=== PATIENT | male | born 1995 | race Caucasian/White ===

== ENCOUNTER 2020-02-03 09:17 | Emergency (ER) | payer OTHER, MEDICARE, SELFPAY ==
[2020-02-03 09:30] VITALS: BP 141/95; PULSE 100; RESP 22; TEMP 37; O2SAT 96
[2020-02-03 10:00] VITALS: BP 155/87; PULSE 80; RESP 16
--- NOTE | 2020-02-03 10:22 | XR_ITS ---
EXAMINATION: XR CHEST CLINICAL INFORMATION: Coughing COMPARISON: December 24, 2018 TECHNIQUE: AP portable view of the chest was obtained. FINDINGS: No significant abnormality is noted involving the heart, lungs, mediastinum, bony thorax or soft tissues. XR/XR chest 1V IMPRESSION: No acute disease.
--- NOTE | 2020-02-03 10:23 | ED_ITS ---
HPI - URI/Sore Throat General Chief Complaint: Upper Respiratory Symptoms Stated Complaint: FLU SYMPTONS Time Seen by Provider: 02/03/20 11:27 Source: patient Mode of arrival: ambulatory Limitations: no limitations History of Present Illness HPI Narrative: patient presents to ED for coughing, body aches, night sweats, fever, and chills. Patient states no one at work or at home having similar symptoms. patient states having symptoms for the past 2 days. Patient denies any shortness of breath, swelling of lower extremities, chest painm calf pain, or weakness. MD elicited complaint: fever and cough Related Data Allergies Allergy/AdvReac Type Severity Reaction Status Date / Time latex [LATEX] Allergy Mild RASH Unverified 12/29/19 16:42 Review of Systems Review of Systems: Patient denies any abdominal pain, diarrhea, nausea, vom iting, shortness of breath, weakness, dizziness, neck stiffness, photophobia, slurred speech, or chest pain. Patient states no abdominal pain, dysuria, hematuria, flank pain, testicular pain, or rash. Yes all other systems are reviewed and are negative [facility] Past Medical History Medical History (Updated 02/03/20 @ 11:35 by JOSE Penaloza) No known health problems No known health problems Social History Social History Alcohol intake: never Smoking Status: Never smoker Use of substances other than those prescribed or required for medical reasons: No Advance Directives: No Advance Directives Information Provided: No Physical Exam Vital Signs: Vital Signs: Vital Signs Temp Pulse Resp BP Pulse Ox 02/03/20 11:32 97 02/03/20 10:00 80 16 155/87 H 02/03/20 09:30 98.6 F 100 22 H 141/95 H 96 Body Mass Index 20.0 Const: General: cooperative, healthy appearing, comfortable, no acute distress, well developed, alert and awake Orientation/consciousness: oriented to person and patient oriented x3 HENMT: Head: Yes normal to inspection Face and sinus: Yes normal facial exam Mouth: Normal oral and palatal mucosa present Throat: Yes posterior oropharynx normal, Yes tonsils normal and Yes uvula midline Eyes: General: appearance normal, both eyes and all related structures Neck: Neck: Yes normal visual inspection, Yes full ROM, Yes no ly mphadenopathy, Yes no meningeal signs and No lymphadenopathy Chest: Chest palpation & inspection: normal inspection of the chest and normal palpation of entire chest wall Resp: Effort & Inspection: normal respiratory effort, able to speak in co mplete sentences, normal respiratory pattern, no audible wheezes and no cough Auscultation: clear to auscultation bilaterally, no crackles, no rales, no rhonchi and no wheezes Percussion: percussion normal Cardio: Jugular venous distension: no JVD Heart sounds: S1 normal heart sound present and S2 normal heart sound present GI: Inspection: Yes normal to inspection Percussion: Yes normal to percussion Auscultation: normal bowel sounds : General: No CVA tenderness and Yes no CVA tenderness Back/Spine/Pelvis: Back: no CVA tenderness, No CVA tenderness and No back tenderness Skin: General skin exam: no rashes or lesions noted Neuro: General: oriented to person, patient oriented x3, gait normal, no meningeal signs and CN's II-XI intact bilaterally Cranial nerves: Yes CN's II-XII intact bilaterally Extrem: General: Yes normal to inspection Psych: Appearance: grossly normal, well kempt and not disheveled Course Course Course Narrative: patient has URI symptoms. Patient will have chest x-ray and COVID swab sent. Presently no labs indicated. Reevaluation(s) Reevaluation #1: Patient xray is normal. Patient is not septic. Patient is safe for discharge. patient educated on COVID-19 and self isolation. Patient is not toxic appearing. Time: 11:31 Discharge Plan Discharge Clinical Impression: Upper respiratory infection Patient Disposition: Home, Self-Care Instructions: Upper Respiratory Infection (ED), Viral Syndrome (ED) Additional Instructions: Return to the ED for any chest pain, shortness of breath, dizziness, weakness, tracked of a fever/chills, or any other concerning symptoms. Please follow-up with the PCP as soon as possible. Recommend 14 days self- isolation and COVID test come back positive Stand Alone Forms: Work/School Release Interventions: ED Discharge Assessment Last Done: 02/03/20 12:02 Discharge Date/Time: 02/03/20 12:02
[2020-02-03 11:32] VITALS: O2SAT 97
== END 2020-02-03 12:02 | disposition home or self-care (01) ==
PROVIDERS: Physician Assistant; Emergency Provider Emergency Medicine
DX: J06.9 Acute upper respiratory infection, unspecified (principal); Z20.828 Contact with and (suspected) exposure to other viral communicable diseases
CPT/HCPCS: 71045; 87635; 99283; 99285

== ENCOUNTER 2020-11-21 21:13 | Emergency (ER) | payer MEDICARE, MEDICAID, SELFPAY ==
--- NOTE | ~2020-11-21 | XR_ITS ---
EXAMINATION: XR CHEST CLINICAL INFORMATION: Dyspnea COMPARISON: 02/03/2020 TECHNIQUE: Frontal view of the chest was obtained. FINDINGS: No acute finding. Exams comparable to previous. No obvious failure or infiltrate. No effusion. The mediastinal contours are comparable. Cardiac silhouette within normal limits XR/XR chest 1V IMPRESSION: No acute finding.
[2020-11-21 21:15] VITALS: BP 150/98; PULSE 112; RESP 22; TEMP 37.1; O2SAT 95; BMI 24.2
--- NOTE | 2020-11-21 21:45 | PC.NURSE ---
COVID/Flu/RSV swab obtained and sent to lab for analysis. Awaiting results. Xray also obtained.
--- NOTE | 2020-11-21 22:36 | ED.SOB ---
HPI - SOB/Dyspnea General Chief Complaint: Dyspnea Stated Complaint: SoB, dizziness Time Seen by Provider: 11/21/20 22:36 Source: patient Mode of arrival: ambulatory Limitations: no limitations History of Present Illness HPI Narrative: Patient with no significant past medical history except for mild depression been coughing for few days with shortness of breath no leg swelling no chills low-grade fever expectorating darkish color sputum no chest pain Related Data Previous Rx's Medication Instructions Recorded codeine 10 mg-guaifenesin 100 mg/5 10 ml PO Q4-6H PRN #237 ml 11/21/20 mL oral liquid doxycycline hyclate 100 mg tablet 100 mg PO BID #20 tab 11/21/20 Allergies Allergy/AdvReac Type Severity Reaction Status Date / Time latex [LATEX] Allergy Mild RASH Verified 11/21/20 21:21 Review of Systems Review of Systems: Yes all other systems are reviewed and are negative [facility] Past Medical History Medical History No known health problems No known health problems Social History Social History Alcohol intake: never Advance Directives: No Advance Directives Information Provided: No Physical Exam Vital Signs: Vital Signs: Last Vital Signs Temp 98.7 F 11/21/20 21:15 Pulse 112 H 11/21/20 21:15 Resp 22 H 11/21/20 21:15 BP 150/98 H 11/21/20 21:15 Pulse Ox 95 11/21/20 21:15 Body Mass Index 24.2 Appearance: Alert. Oriented X3. No acute distress. Eyes: No pallor or icterus ENT: Pharynx normal. Oral Mucosa moist Neck: Normal inspection. Neck supple. CVS: Normal heart rate and rhythm. Pulses normal. Respiratory: No respiratory distress. Equal air entry bilateral, no wheezing/rales/rhonchi Abdomen: Soft and nontender. Skin: Skin warm and dry. Normal skin color. Normal skin turgor. Extremities: No lower extremity edema. No calf tenderness Neuro: Oriented X 3. Normal mood MDM - SOB/Dyspnea MDM Narrative Medical decision making narrative: Patient with acute bronchitis chest x-ray negative , COVID negative too, also has multiple other complaints of depression working heart for sleep will discharge patient home on doxycycline and cough syrup Lab Data Labs: Lab Results 11/21/20 Range/Units 21:25 Coronavirus (PCR) NEGATIVE (Negative) Influenza Type A (PCR) NEGATIVE (Negative) Influenza Type B (PCR) NEGATIVE (Negative) RSV RNA Qual (PCR) NEGATIVE (Negative) Discharge Plan Discharge Clinical Impression: Acute bronchitis Patient Disposition: Home, Self-Care Instructions: Acute Bronchitis (ED) Additional Instructions: Take antibiotic and cough he was prescribed Drink plenty of fluids follow with PCP Prescriptions: New codeine-guaifenesin 10-100 mg/5 mL liquid 10 ml PO Q4-6H PRN (Reason: cough) Qty: 237 RF: 0 doxycycline hyclate 100 mg tablet 100 mg PO BID Qty: 20 RF: 0 Interventions: ED Discharge Assessment Last Done: 11/21/20 23:18 Discharge Date/Time: 11/21/20 23:19 Print Language: Arabic
[2020-11-21 22:39] LABS: Influenza A PCR NEGATIVE (Negative); Influenza B PCR NEGATIVE (Negative); Resp Syncy Virus RNA Qual PCR NEGATIVE (Negative); SARS COV2 PCR INHOUSE NEGATIVE (Negative)
== END 2020-11-21 23:19 | disposition home or self-care (01) ==
PROVIDERS: Emergency Provider Internal Medicine
DX: J20.9 Acute bronchitis, unspecified (principal); Z20.822 Contact with and (suspected) exposure to COVID-19
CPT/HCPCS: 0241U; 36415; 71045; 99283

== ENCOUNTER 2021-07-21 15:19 | Emergency (ER) | payer MEDICARE, MEDICAID, SELFPAY ==
[2021-07-21 16:08] VITALS: BP 138/69; PULSE 63; RESP 18; TEMP 37.2; O2SAT 98; BMI 25.9
[2021-07-21 16:55] LABS: Amphetamine Screen Urine Not Detected (Not Detect); Barbiturates, Urine Not Detected (Not Detect); Benzodiazepines Screen Urine Not Detected (Not Detect); Cannabinoid Screen Urine POSITIVE (Not Detect); Cocaine Screen Urine Not Detected (Not Detect); Fentanyl, urine Not Detected (Not Detect); Opiate Screen Urine Not Detected (Not Detect); Phencyclidine Screen Urine Not Detected (Not Detect)
[2021-07-21 16:56] LABS: COVID-19 Test Negative (Negative); IDNOW Serial# 16C4AD1C
--- NOTE | 2021-07-21 17:24 | ED_ITS ---
HPI - Psych General Chief Complaint: Psychiatric Symptoms Stated Complaint: SI Time Seen by Provider: 07/21/21 17:24 Source: patient Mode of arrival: ambulatory Limitations: no limitations History of Present Illness HPI Narrative: This is a 26-year-old male who reports no medical history presents to the emergency department with suicidal ideation with plan times a few weeks. Patient tells me is plan is to walk into the [facility]. He tells me he is hearing voices and seeing shadows that are telling him to kill himself. Denies tactile hallucinations. Tells me smokes marijuana however denies any other drug use, alcohol and tobacco. He denies homicidal ideation. He is not currently taking any psych meds. He is not followed by a psychiatrist or a therapist. He has had a previous admission that [facility] [place] for psychiatric events. He denies any medical complaints. Tells me a possible triggering event could be that he has not spoken to certain family members for a few months. MD complaint: suicidal ideation, feels depressed, anxiety and hallucinations Onset (ago): week(s) (2) History of same: Yes Relieving factors: none Exacerbating factors: none Associated psychiatric symptoms: none Associated symptoms: denies other symptoms Treatments prior to arrival: none If self harm: admits thoughts of self harm and has plan Related Data Previous Rx's Medication Instructions Recorded codeine 10 mg-guaifenesin 100 mg/5 10 ml PO Q4-6H PRN #237 ml 11/21/20 mL oral liquid doxycycline hyclate 100 mg tablet 100 mg PO BID #20 tab 11/21/20 Allergies Allergy/AdvReac Type Severity Reaction Status Date / Time latex [LATEX] Allergy Mild RASH Verified 11/21/20 21:21 Review of Systems Review of Systems: Constitutional : No Weight loss, No Fever, No Chills, No Fatigue, No Malaise ENT/Mouth : No sore throat, No Rhinorrhea Eyes: No Eye Pain, No Swelling, No Redness Cardiovascular : No Chest Pain, No SOB, No Dyspnea on Exertion, No Orthopnea, No Edema, No Palpitations Respiratory : No Cough, No Sputum, No Wheezing Gastrointestinal : No Nausea, No Vomiting, No Diarrhea, No Constipation, No abdominal Pain, No Hematochezia, No Melena Genitourinary : No Dysuria, No Urinary Frequency, No Hematuria, Musculoskeletal : No joint pain, No Myalgias, No Joint Swelling Skin : No Skin Lesions, No rash Neuro : No Weakness, No Numbness, No Dizziness, No Headache Psych : No Anxiety/Panic, No Depression All other systems reviewed and are negative Yes all other systems are reviewed and are negative [facility] Past Medical History Attestation statement: The following information was validated with the patient. Source: old records reviewed and nursing notes reviewed Medical History No known health problems No known health problems Social History Social History Alcohol intake: never Advance Directives: No Advance Directives Information Provided: No Physical Exam Vital Signs: Vital Signs: Last Vital Signs Temp 99 F 07/21/21 16:08 Pulse 63 07/21/21 16:08 Resp 18 07/21/21 16:08 BP 138/69 07/21/21 16:08 Pulse Ox 98 07/21/21 16:08 BMI result Body Mass Index 25.9 Vital signs stable Appearance: Alert.? Oriented X3.? No acute distress.? Head: Normocephalic, atraumatic, no step-offs or deformities Eyes: Pupils equal, round and reactive to light.? ENT: Pharynx normal.? Neck: Normal inspection.? Neck supple.? CVS: Normal heart rate and rhythm.? Pulses normal.? Respiratory: No respiratory distress.? Breath sounds normal.? Abdomen: Soft and nontender.? Skin: Skin warm and dry.? Normal skin color.? Normal skin turgor.? Extremities: No lower extremity edema.? No calf ttp. 5/5 strength to bilateral upper and lower extremities Back: No midline tenderness, no C-spine tenderness, full range of motion, no CVA tenderness bilaterally Neuro: Oriented X 3.? No motor deficit.? No sensory deficit. CN 2-12 intact Course Reevaluation(s) Reevaluation #1: CBC within normal limits. Patient's BUN slightly elevated however tolerating p.o. fluids. Total bilirubin also noted to be slightly elevated however no pain on palpation to abdomen on exam. No other acute electrolyte abnormalities. U rine clean for infection. Urine toxicology positive for marijuana. Ethanol negative. COVID negative. Spoke to MICHELLE Nation who tells me patient feels comfortable with discharge and outpatient follow up tomorrow. She tells me she is doing a BH and referral for Psychiatry. Patient reports that he lives at home with his uncle. He is not currently having suicidal thoughts. He did tell BH and that his suicidal thoughts were transient and he does not feel as though he will act on these. Patient is not suicidal or homicidal at this time. I agree with plan and I am comfortable with discharging patient home with outpatient providers in follow- up. Comfortable discharge Time: 19:23 MDM - Psych MDM Narrative Medical decision making narrative: 1700 26 yo m presents to the emergency department suicidal ideation with plan. No HI. Patient is voluntary Physical exam benign Plan at this time is medical clearance. Medical Records Attestation: I reviewed the patient's medical records. Lab Data Attestation: I reviewed the patient's lab results. Result diagrams: 07/21/21 18:30 07/21/21 18:30 Labs: Lab Results 07/21/21 07/21/21 07/21/21 Range/Units 16:27 16:27 16:27 WBC (4.8-10.8) X10*3/uL RBC (4.60-5.80) X10*6/uL Hgb (14.0-18.0) g/dl Hct (42.0-52.0) % MCV (80.0-98.0) fL MCH (27.0-33.0) pg MCHC (31.0-36.0) g/dl RDW (11.0-16.0) % Plt Count (160-400) X10*3/uL MPV (9.4-12.4) fL Immature Gran % (Auto) (0.0-0.4) % Neut % (Auto) (45-73) % Lymph % (Auto) (20-40) % [place] % (Auto) (2-11) % Eos % (Auto) (0-4) % Baso % (Auto) (0-2) % Lymph # (Auto) (1.2-4.9) X10*3/uL [place] # (Auto) (0.1-1.2) X10*3/uL Eos # (Auto) (0.0-0.4) X10*3/uL Baso # (Auto) (0.0-0.2) X10*3/uL Abs Immat Gran (auto) (0.00-0.03) X10*3/uL Absolute Neuts (auto) (2.0-8.3) x10*3/uL Absolute Nucleated RBC (0.0-0.012) X10*3/uL Nucleated RBC % (auto) (0.0-0.2) /100WBC Sodium (135-145) mmol/L Potassium (3.3-5.1) mmol/L Chloride (96-108) mmol/L Carbon Dioxide (22-29) mmol/L Anion Gap (12-20) BUN (9-16) mg/dL Creatinine (0.5-1.4) mg/dL Estim Creat Clear Calc Estimated GFR Fasting Glucose (60-99) mg/dL Calcium (8.4-10.2) mg/dL Total Bilirubin (0.0-1.0) mg/dL AST (5-37) U/L ALT (0-40) U/L Alkaline Phosphatase (39-117) U/L Total Protein (6.5-8.0) g/dL Albumin (3.5-5.0) g/dL Urine Color DK YELLOW Urine Appearance CLEAR Urine pH 6.0 (5.0-8.0) Ur Specific [place] 1.025 (1.005-1.025) Urine Protein NEG (NEG-TRACE) MG/DL Urine Glucose (UA) NEG (NEG) MG/DL Urine Ketones 40 (NEG) MG/DL Urine Blood NEG (NEG) Urine Nitrite NEG (NEG) Ur Leukocyte Esterase NEG (NEG) Urine Opiates Screen Not Detected (Not Detect) Urine Fentanyl Screen Not Detected (Not Detect) Ur Barbiturates Screen Not Detected (Not Detect) Ur Phencyclidine Scrn Not Detected (Not Detect) Ur Amphetamines Screen Not Detected (Not Detect) U Benzodiazepines Scrn Not Detected (Not Detect) Urine Cocaine Screen Not Detected (Not Detect) U Marijuana (THC) Screen POSITIVE H (Not Detect) Ethyl Alcohol mg/dL COVID-19 (KAEL) Negative (Negative) COVID-19 Clin Com See Note 07/21/21 07/21/21 07/21/21 Range/Units 18:30 18:30 18:30 WBC 5.9 (4.8-10.8) X10*3/uL RBC 4.77 (4.60-5.80) X10*6/uL Hgb 15.4 (14.0-18.0) g/dl Hct 45.4 (42.0-52.0) % MCV 95.2 (80.0-98.0) fL MCH 32.3 (27.0-33.0) pg MCHC 33.9 (31.0-36.0) g/dl RDW 12.6 (11.0-16.0) % Plt Count 173 (160-400) X10*3/uL MPV 11.3 (9.4-12.4) fL Immature Gran % (Auto) 0.3 (0.0-0.4) % Neut % (Auto) 68.0 (45-73) % Lymph % (Auto) 22.1 (20-40) % [place] % (Auto) 7.1 (2-11) % Eos % (Auto) 2.0 (0-4) % Baso % (Auto) 0.5 (0-2) % Lymph # (Auto) 1.3 (1.2-4.9) X10*3/uL [place] # (Auto) 0.4 (0.1-1.2) X10*3/uL Eos # (Auto) 0.1 (0.0-0.4) X10*3/uL Baso # (Auto) 0.0 (0.0-0.2) X10*3/uL Abs Immat Gran (auto) 0.02 (0.00-0.03) X10*3/uL Absolute Neuts (auto) 4.0 (2.0-8.3) x10*3/uL Absolute Nucleated RBC 0.000 (0.0-0.012) X10*3/uL Nucleated RBC % (auto) 0.0 (0.0-0.2) /100WBC Sodium 140 (135-145) mmol/L Potassium 4.2 (3.3-5.1) mmol/L Chloride 105 (96-108) mmol/L Carbon Dioxide 29 (22-29) mmol/L Anion Gap 10 L (12-20) BUN 20 H (9-16) mg/dL Creatinine 0.83 (0.5-1.4) mg/dL Estim Creat Clear Calc 124.9 Estimated GFR > 60 Fasting Glucose 126 H (60-99) mg/dL Calcium 9.5 (8.4-10.2) mg/dL Total Bilirubin 1.3 H (0.0-1.0) mg/dL AST 21 (5-37) U/L ALT 18 (0-40) U/L Alkaline Phosphatase 59 (39-117) U/L Total Protein 6.8 (6.5-8.0) g/dL Albumin 4.7 (3.5-5.0) g/dL Urine Color Urine Appearance Urine pH (5.0-8.0) Ur Specific [place] (1.005-1.025) Urine Protein (NEG-TRACE) MG/DL Urine Glucose (UA) (NEG) MG/DL Urine Ketones (NEG) MG/DL Urine Blood (NEG) Urine Nitrite (NEG) Ur Leukocyte Esterase (NEG) Urine Opiates Screen (Not Detect) Urine Fentanyl Screen (Not Detect) Ur Barbiturates Screen (Not Detect) Ur Phencyclidine Scrn (Not Detect) Ur Amphetamines Screen (Not Detect) U Benzodiazepines Scrn (Not Detect) Urine Cocaine Screen (Not Detect) U Marijuana (THC) Screen (Not Detect) Ethyl Alcohol < 10 mg/dL COVID-19 (KAEL) (Negative) COVID-19 Clin Com Critical Care Time Critical Care Time Critical Care Time: No Discharge Plan Discharge Clinical Impression: Depression, Suicidal ideation Patient Disposition: Home, Self-Care Instructions: Depression (ED), Suicide Prevention (ED), Help Prevent Suicide (ED), Help Prevent Suicide in Older Adults (ED) Additional Instructions: Take your medications as prescribed. If you were prescribed antibiotics today, it is important that you take your medication to their entirety, do not skip any doses, do not finish them early. Follow-up with your primary care provider this week. Return to the emergency department with new or worsening symptoms. Such as fevers, chills, chest pain, shortness of breath, nausea, vomiting, dizziness, headache, vision changes, lethargy, anxiety, depression, visual or auditory hallucinations, suicidal ideation or homicidal ideation [facility] and has sent in a referral you will be hearing from them and they will follow up on you. In case of emergency call 911 Prescriptions: No Action codeine-guaifenesin 10-100 mg/5 mL liquid 10 ml PO Q4-6H PRN (Reason: cough) Qty: 237 0RF doxycycline hyclate 100 mg tablet 100 mg PO BID Qty: 20 0RF Referrals: [facility] [Provider Group] - 1 day Physician,Unknown J [Primary Care Provider] - Stand Alone Forms: Work/School Release
[2021-07-21 17:43] LABS: Appearance Urine CLEAR; Color Urine DK YELLOW; Glucose Urine UA NEG (NEG); Leukocyte Esterase Urine NEG (NEG); Nitrite Urine NEG (NEG); Specific Gravity - Urine 1.025 (1.005-1.025); Urine Blood NEG (NEG); Urine Ketones 40 MG/DL (NEG); Urine Protein NEG (NEG-TRACE)
[2021-07-21 18:40] LABS: MANUAL DIFF FLAG NO
[2021-07-21 18:42] LABS: Basophils Percent Auto 0.5 % (0-2); Eosinophils Absolute Auto 0.1 X10*3/uL (0.0-0.4); Hematocrit 45.4 % (42.0-52.0); Hemoglobin 15.4 g/dl (14.0-18.0); Imm Gran Abs Auto 0.02 X10*3/uL (0.00-0.03); Imm Gran Pct Auto 0.3 % (0.0-0.4); Lymphocytes Absolute Auto 1.3 X10*3/uL (1.2-4.9); Lymphocytes Percent Auto 22.1 % (20-40); Mean Corpuscular HGB Conc 33.9 g/dl (31.0-36.0); Mean Corpuscular Hemoglobin 32.3 pg (27.0-33.0); Mean Corpuscular Volume 95.2 fL (80.0-98.0); Mean Platelet Volume 11.3 fL (9.4-12.4); Monocytes Absolute Auto 0.4 X10*3/uL (0.1-1.2); Monocytes Percent Auto 7.1 % (2-11); Platelet Count 173 X10*3/uL (160-400); Red Blood Count 4.77 X10*6/uL (4.60-5.80); Red Cell Distribution Width 12.6 % (11.0-16.0); White Blood Count 5.9 X10*3/uL (4.8-10.8)
[2021-07-21 18:53] LABS: Ethanol < 10 mg/dL
[2021-07-21 18:55] LABS: Alanine Aminotransferase 18 U/L (0-40); Albumin Level 4.7 g/dL (3.5-5.0); Alkaline Phosphatase 59 U/L (39-117); Anion Gap 10 (12-20); Aspartate Amino Transferase 21 U/L (5-37); Bilirubin Total 1.3 mg/dL (0.0-1.0); Blood Urea Nitrogen 20 mg/dL (9-16); Calcium 9.5 mg/dL (8.4-10.2); Carbon Dioxide 29 mmol/L (22-29); Chloride 105 mmol/L (96-108); Creatinine Clr Calc Pharmacy 124.9; Estimated Glomerular Filt Rate > 60; Glucose Fasting 126 mg/dL (60-99); Potassium 4.2 mmol/L (3.3-5.1); Sodium 140 mmol/L (135-145); Total Protein 6.8 g/dL (6.5-8.0)
== END 2021-07-21 19:44 | disposition home or self-care (01) ==
PROVIDERS: Nurse Practitioner Family; Physician Assistant; Emergency Provider Internal Medicine
DX: F33.1 Major depressive disorder, recurrent, moderate (principal); R45.851 Suicidal ideations; Z20.822 Contact with and (suspected) exposure to COVID-19; Z79.899 Other long term (current) drug therapy
CPT/HCPCS: 36415; 80053; 80307; 81003; 82077; 85025; 87635; 99284

== ENCOUNTER 2022-08-01 11:18 | Emergency (ER) | payer MEDICARE, SELFPAY ==
--- NOTE | ~2022-08-01 | CT_ITS ---
EXAMINATION: CT ABDOMEN AND PELVIS WITHOUT CONTRAST CLINICAL INFORMATION: Left flank pain COMPARISON: None available. TECHNIQUE: Multidetector volumetric imaging was performed from the superior aspect of the liver through the pubic symphysis. Sagittal and coronal reformatted images were obtained on the technologist's workstation. This CT examination was performed using dose optimization techniques as appropriate, variously including the following: *Automated exposure control *Adjustment of mA and/or kV according to patient size (this includes techniques or standardized protocols for targeted exams where dose is matched to indication/reason for exam; i.e. extremities or head) *Use of iterative reconstruction technique DLP: 449 mGy-cm FINDINGS: LUNG BASES: The visualized lung bases are unremarkable. LIVER, GALLBLADDER, AND BILIARY TREE: The liver is normal in size, shape, and attenuation. No focal hepatic lesion or biliary ductal dilatation is present. The gallbladder is unremarkable with no evidence of radiopaque gallstones, gallbladder wall thickening, or obvious pericholecystic inflammatory changes. PANCREAS: Unremarkable. SPLEEN: Unremarkable. ADRENAL GLANDS: Unremarkable. KIDNEYS AND URETERS: The kidneys are normal in size, shape, and attenuation. No hydronephrosis or hydroureter. 0.2 cm calculus at the upper pole of the right kidney, 9 cm from the posterior axillary line. BLADDER: Unremarkable. GASTROINTESTINAL TRACT: The small and large bowel are unremarkable. The appendix is unremarkable. ABDOMINAL WALL: Small fat-containing right inguinal hernia. LYMPH NODES: Normal. VASCULAR: Unremarkable. PELVIC VISCERA: The prostate and seminal vesicles are unremarkable. OSSEOUS STRUCTURES: No acute or suspicious osseous abnormality. CT/CT abdomen pelvis wo IV con IMPRESSION: No acute findings in the abdomen or pelvis. No hydronephrosis. Nonobstructing 0.2 cm right upper pole renal calculus. Fleischner guidelines were followed.
[2022-08-01 11:28] VITALS: BP 139/71; PULSE 83; RESP 18; TEMP 36.9; O2SAT 95; BMI 24.2
--- NOTE | 2022-08-01 11:32 | ED_ITS ---
HPI - General Adult General Chief complaint: Abdominal Pain <Sam Love - Last Filed: 08/01/22 11:33> Stated complaint: kidney swelling <Sam Love - Last Filed: 08/01/22 11:33> Time Seen by Provider: 08/01/22 15:13 <Sam Love - Last Filed: 08/01/22 11:33> Source: patient <Darryl Melgar MD - Last Filed: 08/01/22 17:02> Mode of arrival: ambulatory <Darryl Melgar MD - Last Filed: 08/01/22 17:02> Limitations: no limitations <Darryl Melgar MD - Last Filed: 08/01/22 17:02> History of Present Illness HPI narrative: 27-year-old male who presents emergency department for evaluation of left- sided flank and lower back pain. He states the pain started yesterday. The pain came on suddenly. He denies any injury. Describes the pain is stabbing pain which is worse with movement. The pain is been constant. The pain was 10/10 at its worst. At the time my evaluation the pain was 6/10. Patient denied frequency, urgency or dysuria. He states that he has had kidney stones and urine infections in the past. <Darryl Melgar MD - Last Filed: 08/01/22 17:02> Related Data Home medications: Previous Rx's Medication Instructions Recorded codeine 10 mg-guaifenesin 100 mg/5 10 ml PO Q4-6H PRN cough #237 mL 11/21/20 mL oral liquid doxycycline hyclate 100 mg tablet 100 mg PO BID #20 tabs 11/21/20 cyclobenzaprine 10 mg tablet 10 mg PO TID PRN pain, muscle 08/01/22 spasm #15 tabs <Sam Love - Last Filed: 08/01/22 11:33> Allergies/adverse reactions: Allergies Allergy/AdvReac Type Severity Reaction Status Date / Time latex [LATEX] Allergy Mild RASH Verified 11/21/20 21:21 <Sam Love - Last Filed: 08/01/22 11:33> Review of Systems Review of Systems: Yes all other systems are reviewed and are negative <Darryl Melgar MD - Last Filed: 08/01/22 17:02> [facility] Past Medical History Medical History: Medical History No known health problems No known health problems <Sam Love - Last Filed: 08/01/22 11:33> Social History Social History: Social History Alcohol intake: never Advance Directives: No Advance Directives Information Provided: No <Sam Love - Last Filed: 08/01/22 11:33> Physical Exam ED Vital Signs: Vital Signs - 24 hr 08/01/22 11:28 08/01/22 15:17 Temperature 98.4 F 97.8 F Pulse Rate 83 58 Respiratory Rate 18 18 Blood Pressure 139/71 120/66 Pulse Oximetry 95 96 Oxygen Delivery Method Room Air Room Air BMI result Body Mass Index 24.2 <Sam Love - Last Filed: 08/01/22 11:33> Vital Signs - 24 hr 08/01/22 11:28 08/01/22 15:17 Temperature 98.4 F 97.8 F Pulse Rate 83 58 Respiratory Rate 18 18 Blood Pressure 139/71 120/66 Pulse Oximetry 95 96 Oxygen Delivery Method Room Air Room Air BMI result Body Mass Index 24.2 <Darryl Melgar MD - Last Filed: 08/01/22 17:02> Const General: cooperative and no acute distress <Darryl Melgar MD - Last Filed: 08/01/22 17:02> Orientation/consciousness: oriented to person and oriented to place <Darryl Melgar MD - Last Filed: 08/01/22 17:02> Limitations: no limitations <Darryl Melgar MD - Last Filed: 08/01/22 17:02> HENMT Head: Yes normal to inspection, Yes normocephalic and Yes atraumatic <Darryl Melgar MD - Last Filed: 08/01/22 17:02> Ears: external ears normal <Darryl Melgar MD - Last Filed: 08/01/22 17:02> General nose exam: Normal external nose present <Darryl Melgar MD - Last Filed: 08/01/22 17:02> Face and sinus: Yes normal facial exam <MD Yue Holguin Last Filed: 08/01/22 17:02> Mouth: Normal oral and palatal mucosa present <MD Yue Holguin Last Filed: 08/01/22 17:02> Throat: Yes posterior oropharynx normal <Darryl Melgar MD - Last Filed: 08/01/22 17:02> Eyes General: appearance normal, both eyes and all related structures <Darryl Melgar MD - Last Filed: 08/01/22 17:02> Pupils: Equal, round and reactive pupils present <MD Yue Holguin Last Filed: 08/01/22 17:02> Neck Neck: Yes normal visual inspection, Yes no lymphadenopathy, Yes trachea midline and Yes supple <Darryl Melgar MD - Last Filed: 08/01/22 17:02> Chest Chest palpation & inspection: normal inspection of the chest and normal palpation of entire chest wall <MD Yue Holguin Last Filed: 08/01/22 17:02> Resp Effort & Inspection: normal respiratory effort and able to speak in complete sentences <MD Yue Holguin Last Filed: 08/01/22 17:02> Auscultation: clear to auscultation bilaterally <Darryl Melgar MD - Last Filed: 08/01/22 17:02> Cardio Rate: regular rate <MD Yue Holguin Last Filed: 08/01/22 17:02> Rhythm: regular rhythm <MD Yue Holguin Last Filed: 08/01/22 17:02> Heart sounds: S1 normal heart sound present, S2 normal heart sound present and no murmurs <MD Yue Holguin Last Filed: 08/01/22 17:02> GI Inspection: Yes normal to inspection <MD Yue Holguin Last Filed: 08/01/22 17:02> Palpation (GI): Soft to palpation, nontender and no guarding <Darryl Melgar MD - Last Filed: 08/01/22 17:02> Auscultation: normal bowel sounds <Darryl Melgar MD - Last Filed: 08/01/22 17:02> Back/Spine/Pelvis Other: No CVA tenderness, patient does have tenderness palpation of the paraspinal muscles in lumbar sacral area on the left, there is spasm of these muscles, has no point vertebral tenderness <Darryl Melgar MD - Last Filed: 08/01/22 17:02> Skin General skin exam: no rashes or lesions noted <Darryl Melgar MD - Last Filed: 08/01/22 17:02> Neuro General: oriented to person and oriented to place <Darryl Melgar MD - Last Filed: 08/01/22 17:02> Cranial nerves: Yes CN's II-XII intact bilaterally and Yes Equal, round and reactive pupils present <Darryl Melgar MD - Last Filed: 08/01/22 17:02> Cognition (Neuro): normal cognition <Darryl Melgar MD - Last Filed: 08/01/22 17:02> Motor exam (neuro): 5/5 motor strength present throughout <Darryl Melgar MD - Last Filed: 08/01/22 17:02> Extrem General: Yes normal to inspection <Darryl Melgar MD - Last Filed: 08/01/22 17:02> Psych Appearance: grossly normal <Darryl Melgar MD - Last Filed: 08/01/22 17:02> Speech and movement: Normal speech and movement present <Darryl Melgar MD - Last Filed: 08/01/22 17:02> Affect: normal affect <Darryl Melgar MD - Last Filed: 08/01/22 17:02> Attitude: cooperative <Darryl Melgar MD - Last Filed: 08/01/22 17:02> Thought process: Normal thought process present <Darryl Melgar MD - Last Filed: 08/01/22 17:02> Thought content: Normal thought content present <Darryl Melgar MD - Last Filed: 08/01/22 17:02> Course Course Course Narrative: RME- 27-year-old male presents for evaluation of left flank pain and difficulty urinating. Plan for labs, UA, CT abdomen pelvis without contrast to evaluate for obstructive uropathy <Sam LeslyPilarPenfield - Last Filed: 08/01/22 11:33> Medical Decision Making Medical Decision Making [facility] Narrative: 19-year-old male who presents emergency department for evaluation of left lower of back pain that started yesterday, came on suddenly, the pain is been 10/10 at its worse and was 6/10 at the time my evaluation. The patient does have a history kidney stones and urinary tract infections. Examination did reveal tenderness palpation of his lumbar sacral paraspinal muscles on the left with spasm of these muscles. Labs ordered by provider triage: CBC, CMP, urinalysis. CT scan of the abdomen pelvis without IV contrast was ordered as well. 1559: My interpretation patient's laboratory data is as follows: CBC revealed a low platelet count of a 157 otherwise normal colon glucose elevated 158. Bilirubin elevated 1.9. Urinalysis negative. CT scan of the abdomen pelvis revealed no acute findings on the left to explain the patient's pain. Patient does have a 2 mm right upper pole kidney stone. Patient's findings and presentation are consistent left-sided lumbar sacral muscle strain with spasm. Patient was treated in the emergency department with ibuprofen 400 mg orally Tylenol under 75 mg orally. Patient was advised to take Tylenol and ibuprofen for pain he was also given prescription for Flexeril (cyclobenzaprine) 10 mg every 8 hours as needed for pain or spasm. He was given printed and verbal instructions discharged home <Darryl Melgar MD - Last Filed: 08/01/22 17:02> Differential Diagnosis Differential diagnosis includes was not limited to renal colic, ureteral stone, urinary tract infection, pyelonephritis, musculoskeletal pain, musculoskeletal spasm <Darryl Melgar MD - Last Filed: 08/01/22 17:02> Lab Data [facility] Lab Attestation statement: I reviewed the patient's lab results. <Darryl Melgar MD - Last Filed: 08/01/22 17:02> See [facility] <Darryl Melgar MD - Last Filed: 08/01/22 17:02> Result Diagrams: 08/01/22 11:52 08/01/22 11:52 <Sam Love - Last Filed: 08/01/22 11:33> Labs: Lab Results 08/01/22 08/01/22 08/01/22 Range/Units 11:52 11:52 15:25 WBC 5.6 (4.8-10.8) X10*3/uL RBC 4.59 L (4.60-5.80) X10*6/uL Hgb 15.0 (14.0-18.0) g/dl Hct 43.3 (42.0-52.0) % MCV 94.3 (80.0-98.0) fL MCH 32.7 (27.0-33.0) pg MCHC 34.6 (31.0-36.0) g/dl RDW 12.2 (11.0-16.0) % Plt Count 157 L (160-400) X10*3/uL MPV 11.3 (9.4-12.4) fL Immature Gran % (Auto) 0.2 (0.0-0.4) % Neut % (Auto) 66.7 (45-73) % Lymph % (Auto) 22.5 (20-40) % [place] % (Auto) 8.9 (2-11) % Eos % (Auto) 1.2 (0-4) % Baso % (Auto) 0.5 (0-2) % Lymph # (Auto) 1.3 (1.2-4.9) X10*3/uL [place] # (Auto) 0.5 (0.1-1.2) X10*3/uL Eos # (Auto) 0.1 (0.0-0.4) X10*3/uL Baso # (Auto) 0.0 (0.0-0.2) X10*3/uL Abs Immat Gran (auto) 0.01 (0.00-0.03) X10*3/uL Absolute Neuts (auto) 3.7 (2.0-8.3) x10*3/uL Absolute Nucleated RBC 0.000 (0.0-0.012) X10*3/uL Nucleated RBC % (auto) 0.0 (0.0-0.2) /100WBC Sodium 139 (135-145) mmol/L Potassium 4.1 (3.3-5.1) mmol/L Chloride 107 (96-108) mmol/L Carbon Dioxide 26 (22-29) mmol/L Anion Gap 10 L (12-20) BUN 17 H (9-16) mg/dL Creatinine 0.86 (0.5-1.4) mg/dL Estim Creat Clear Calc 115.4 Estimated GFR > 60 Random Glucose 158 H (60-115) mg/dL Calcium 9.5 (8.4-10.2) mg/dL Total Bilirubin 1.9 H (0.0-1.0) mg/dL AST 23 (5-37) U/L ALT 19 (0-40) U/L Alkaline Phosphatase 53 (39-117) U/L Total Protein 6.5 (6.5-8.0) g/dL Albumin 4.6 (3.5-5.0) g/dL Urine Color Dark Yellow Urine Appearance Clear Urine pH 5.5 (5.0-9.0) Ur Specific [place] >= 1.030 H (1.005-1.025) Urine Protein Trace (Neg-Trace) mg/dL Urine Glucose (UA) Negative (Negative) mg/dL Urine Ketones Negative (Negative) mg/dL Urine Blood Negative (Negative) Urine Nitrite Negative (Negative) Ur Leukocyte Esterase Negative (Negative) Urine RBC 0-2 (0-2) /HPF Urine WBC 0-5 (0-5) /HPF Ur Squamous Epith Cells 0-2 (0-2) /HPF Urine Bacteria None Seen (None Seen) Hyaline Casts 0-2 (0-2) /LPF <Sam Love - Last Filed: 08/01/22 11:33> Lab Results 08/01/22 08/01/22 08/01/22 Range/Units 11:52 11:52 15:25 WBC 5.6 (4.8-10.8) X10*3/uL RBC 4.59 L (4.60-5.80) X10*6/uL Hgb 15.0 (14.0-18.0) g/dl Hct 43.3 (42.0-52.0) % MCV 94.3 (80.0-98.0) fL MCH 32.7 (27.0-33.0) pg MCHC 34.6 (31.0-36.0) g/dl RDW 12.2 (11.0-16.0) % Plt Count 157 L (160-400) X10*3/uL MPV 11.3 (9.4-12.4) fL Immature Gran % (Auto) 0.2 (0.0-0.4) % Neut % (Auto) 66.7 (45-73) % Lymph % (Auto) 22.5 (20-40) % [place] % (Auto) 8.9 (2-11) % Eos % (Auto) 1.2 (0-4) % Baso % (Auto) 0.5 (0-2) % Lymph # (Auto) 1.3 (1.2-4.9) X10*3/uL [place] # (Auto) 0.5 (0.1-1.2) X10*3/uL Eos # (Auto) 0.1 (0.0-0.4) X10*3/uL Baso # (Auto) 0.0 (0.0-0.2) X10*3/uL Abs Immat Gran (auto) 0.01 (0.00-0.03) X10*3/uL Absolute Neuts (auto) 3.7 (2.0-8.3) x10*3/uL Absolute Nucleated RBC 0.000 (0.0-0.012) X10*3/uL Nucleated RBC % (auto) 0.0 (0.0-0.2) /100WBC Sodium 139 (135-145) mmol/L Potassium 4.1 (3.3-5.1) mmol/L Chloride 107 (96-108) mmol/L Carbon Dioxide 26 (22-29) mmol/L Anion Gap 10 L (12-20) BUN 17 H (9-16) mg/dL Creatinine 0.86 (0.5-1.4) mg/dL Estim Creat Clear Calc 115.4 Estimated GFR > 60 Random Glucose 158 H (60-115) mg/dL Calcium 9.5 (8.4-10.2) mg/dL Total Bilirubin 1.9 H (0.0-1.0) mg/dL AST 23 (5-37) U/L ALT 19 (0-40) U/L Alkaline Phosphatase 53 (39-117) U/L Total Protein 6.5 (6.5-8.0) g/dL Albumin 4.6 (3.5-5.0) g/dL Urine Color Dark Yellow Urine Appearance Clear Urine pH 5.5 (5.0-9.0) Ur Specific [place] >= 1.030 H (1.005-1.025) Urine Protein Trace (Neg-Trace) mg/dL Urine Glucose (UA) Negative (Negative) mg/dL Urine Ketones Negative (Negative) mg/dL Urine Blood Negative (Negative) Urine Nitrite Negative (Negative) Ur Leukocyte Esterase Negative (Negative) Urine RBC 0-2 (0-2) /HPF Urine WBC 0-5 (0-5) /HPF Ur Squamous Epith Cells 0-2 (0-2) /HPF Urine Bacteria None Seen (None Seen) Hyaline Casts 0-2 (0-2) /LPF <Darryl Melgar MD - Last Filed: 08/01/22 17:02> Radiology Impression Discussion of test interpretation with radiology: I have reviewed the radiologist's reading. <Darryl Melgar MD - Last Filed: 08/01/22 17:02> Radiologist Impression: CT abdomen pelvis wo IV con IMPRESSION: No acute findings in the abdomen or pelvis. No hydronephrosis. Nonobstructing 0.2 cm right upper pole renal calculus. Fleischner guidelines were followed. Dictated By:Andrew Castellanos MD <Darryl Melgar MD - Last Filed: 08/01/22 17:02> Discharge Plan Discharge Clinical Impression: Left lumbar pain <Sam Love - Last Filed: 08/01/22 11:33> Patient Disposition: Home, Self-Care <Sam Love - Last Filed: 08/01/22 11:33> Instructions: Acute Low Back Pain (ED) <Sam Love - Last Filed: 08/01/22 11:33> Additional Instructions: Your blood work was normal Your urine was normal with no evidence for dissection Your CT scan of your abdomen pelvis without IV contrast did not reveal any kidney stones on the left. You have a kidney stone in your right kidney measuring 2 mL but this is not the cause of your pain. Your pain is caused by muscle pain in your lower back Take Motrin (ibuprofen) 200 mg pills, 2 pills every 6 hours as needed for pain. Take Tylenol (acetaminophen) 500 mg pills, 2 pills every 6 hours as needed for pain. Take Flexeril (cyclobenzaprine) 10 mg pills, 1 pill every 8 hours as needed for pain or muscle spasm. This is a prescription medication. This medication will make you sleepy, therefore do not drive or work while taking this medication. Apply ice for 15 minutes to the area that hurts on your back, then apply a heating a pad on low for 15 minutes. Do this 4-6 times a day to help reduce the pain in your back. Continue with normal activities as tolerated since staying in bed and not moving around will make your pain worse. Please return to the emergency department if your symptoms get worse or if you develop any new symptoms that are concerning you. Follow up with your doctor in 2 day. Please read the other printed discharge instructions on back pain. Please see the work note. <Sam Love - Last Filed: 08/01/22 11:33> Prescriptions: New cyclobenzaprine 10 mg tablet 10 mg PO TID PRN (Reason: pain, muscle spasm) Qty: 15 0RF No Action codeine-guaifenesin 10-100 mg/5 mL liquid 10 ml PO Q4-6H PRN (Reason: cough) Qty: 237 0RF doxycycline hyclate 100 mg tablet 100 mg PO BID Qty: 20 0RF <Sam Love - Last Filed: 08/01/22 11:33> Stand Alone Forms: Work/School Release <Sam Love - Last Filed: 08/01/22 11:33>
[2022-08-01 11:56] LABS: MANUAL DIFF FLAG NO
[2022-08-01 11:58] LABS: Basophils Percent Auto 0.5 % (0-2); Eosinophils Absolute Auto 0.1 X10*3/uL (0.0-0.4); Eosinophils Percent Auto 1.2 % (0-4); Hematocrit 43.3 % (42.0-52.0); Imm Gran Abs Auto 0.01 X10*3/uL (0.00-0.03); Imm Gran Pct Auto 0.2 % (0.0-0.4); Lymphocytes Absolute Auto 1.3 X10*3/uL (1.2-4.9); Lymphocytes Percent Auto 22.5 % (20-40); Mean Corpuscular HGB Conc 34.6 g/dl (31.0-36.0); Mean Corpuscular Hemoglobin 32.7 pg (27.0-33.0); Mean Corpuscular Volume 94.3 fL (80.0-98.0); Mean Platelet Volume 11.3 fL (9.4-12.4); Monocytes Absolute Auto 0.5 X10*3/uL (0.1-1.2); Monocytes Percent Auto 8.9 % (2-11); Neutrophils Absolute Auto 3.7 x10*3/uL (2.0-8.3); Neutrophils Percent Auto 66.7 % (45-73); Platelet Count 157 X10*3/uL (160-400); Red Blood Count 4.59 X10*6/uL (4.60-5.80); Red Cell Distribution Width 12.2 % (11.0-16.0); White Blood Count 5.6 X10*3/uL (4.8-10.8)
[2022-08-01 12:19] LABS: Alanine Aminotransferase 19 U/L (0-40); Albumin Level 4.6 g/dL (3.5-5.0); Alkaline Phosphatase 53 U/L (39-117); Anion Gap 10 (12-20); Aspartate Amino Transferase 23 U/L (5-37); Bilirubin Total 1.9 mg/dL (0.0-1.0); Blood Urea Nitrogen 17 mg/dL (9-16); Calcium 9.5 mg/dL (8.4-10.2); Carbon Dioxide 26 mmol/L (22-29); Chloride 107 mmol/L (96-108); Creatinine Clr Calc Pharmacy 115.4; Estimated Glomerular Filt Rate > 60; Glucose Random 158 mg/dL (60-115); Potassium 4.1 mmol/L (3.3-5.1); Sodium 139 mmol/L (135-145); Total Protein 6.5 g/dL (6.5-8.0)
[2022-08-01 15:17] VITALS: BP 120/66; PULSE 58; RESP 18; TEMP 36.6; O2SAT 96
[2022-08-01 15:34] LABS: Appearance Urine Clear; Color Urine Dark Yellow; Glucose Urine UA Negative (Negative); Leukocyte Esterase Urine Negative (Negative); Nitrite Urine Negative (Negative); PH 5.5 (5.0-9.0); Specific Gravity - Urine >= 1.030 (1.005-1.025); Urine Blood Negative (Negative); Urine Ketones Negative (Negative); Urine Protein Trace mg/dL (Neg-Trace)
[2022-08-01 15:39] LABS: Bacteria Urine None Seen (None Seen); Hyaline Casts Urine 0-2 /LPF (0-2); RBC Urine 0-2 /HPF (0-2); Squamous Epithelial Cell Urine 0-2 /HPF (0-2); WBC Urine 0-5 /HPF (0-5)
[2022-08-01] MEDS: Ibuprofen 400 MG TABLET PO (16:59)
[2022-08-01] MEDS: Acetaminophen 325 MG TABLET 975 MG PO (16:59)
== END 2022-08-01 17:04 | disposition home or self-care (01) ==
PROVIDERS: Physician Assistant; Emergency Provider Emergency Medicine Emergency Medical Services; PCP Physician Assistant Medical
DX: M54.50 Low back pain, unspecified (principal); R10.2 Pelvic and perineal pain; Z79.899 Other long term (current) drug therapy
CPT/HCPCS: 36415; 74176; 80053; 81001; 85025; 99283; 99284

== ENCOUNTER 2022-09-16 12:21 | Emergency (ER) | payer MEDICARE, SELFPAY ==
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
[2022-09-16 12:30] VITALS: BP 143/97; PULSE 72; O2SAT 97
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
[2022-09-16 13:46] VITALS: BP 153/99; PULSE 77; RESP 18; TEMP 36.8; O2SAT 100; BMI 23.6
[2022-09-16 14:08] LABS: MANUAL DIFF FLAG NO
[2022-09-16 14:11] LABS: Basophils Absolute Auto 0.1 X10*3/uL (0.0-0.2); Basophils Percent Auto 0.7 % (0-2); Eosinophils Absolute Auto 0.1 X10*3/uL (0.0-0.4); Eosinophils Percent Auto 1.1 % (0-4); Hematocrit 47.5 % (42.0-52.0); Hemoglobin 15.6 g/dl (14.0-18.0); Imm Gran Abs Auto 0.07 X10*3/uL (0.00-0.03); Lymphocytes Absolute Auto 1.5 X10*3/uL (1.2-4.9); Lymphocytes Percent Auto 20.2 % (20-40); Mean Corpuscular HGB Conc 32.8 g/dl (31.0-36.0); Mean Corpuscular Hemoglobin 32.7 pg (27.0-33.0); Mean Corpuscular Volume 99.6 fL (80.0-98.0); Mean Platelet Volume 10.9 fL (9.4-12.4); Monocytes Absolute Auto 0.6 X10*3/uL (0.1-1.2); Monocytes Percent Auto 7.9 % (2-11); Neutrophils Percent Auto 69.1 % (45-73); Platelet Count 192 X10*3/uL (160-400); Red Blood Count 4.77 X10*6/uL (4.60-5.80); Red Cell Distribution Width 12.4 % (11.0-16.0); White Blood Count 7.2 X10*3/uL (4.8-10.8)
[2022-09-16 14:26] LABS: Anion Gap 14 (12-20); Blood Urea Nitrogen 15 mg/dL (9-16); Calcium 9.8 mg/dL (8.4-10.2); Carbon Dioxide 19 mmol/L (22-29); Chloride 108 mmol/L (96-108); Creatinine Clr Calc Pharmacy 135.9; Estimated Glomerular Filt Rate > 60; Glucose Random 83 mg/dL (60-115); Potassium 4.3 mmol/L (3.3-5.1); Sodium 137 mmol/L (135-145)
[2022-09-16 18:21] VITALS: BP 146/82; PULSE 73; RESP 16; O2SAT 95
[2022-09-16] MEDS: Ketorolac Tromethamine 30 MG/ML VIAL 15 MG IM (18:23)
[2022-09-16] MEDS: Doxycycline Monohydrate 100 MG CAPSULE PO (18:23)
[2022-09-16] MEDS: Acetaminophen 325 MG TABLET 650 MG PO (18:23)
== END 2022-09-16 18:30 | disposition home or self-care (01) ==
PROVIDERS: Physician Assistant; Emergency Provider Student in an Organized Health Care Education/Training Program
DX: S50.312A Abrasion of left elbow, initial encounter (principal); S50.311A Abrasion of right elbow, initial encounter; S80.812A Abrasion, left lower leg, initial encounter; S80.811A Abrasion, right lower leg, initial encounter; V29.99XA Rider (driver) (passenger) of other motorcycle injured in unspecified traffic accident, initial encounter; Y93.89 Activity, other specified; Y92.410 Unspecified street and highway as the place of occurrence of the external cause; Y99.9 Unspecified external cause status
CPT/HCPCS: 36415; 70450; 73080; 80048; 85025; 96372; 99283; 99284; J1885

== ENCOUNTER 2023-05-07 20:57 | Emergency (ER) | payer MEDICARE, MEDICAID, SELFPAY ==
[2023-05-07 21:09] VITALS: BP 147/76; PULSE 87; RESP 18; TEMP 37.1; O2SAT 98; BMI 29.0
[2023-05-07 21:36] LABS: MANUAL DIFF FLAG NO
[2023-05-07 21:38] LABS: Basophils Percent Auto 0.4 % (0-2); Eosinophils Absolute Auto 0.1 X10*3/uL (0.0-0.4); Eosinophils Percent Auto 1.3 % (0-4); Hematocrit 40.5 % (42.0-52.0); Hemoglobin 13.9 g/dl (14.0-18.0); Imm Gran Abs Auto 0.02 X10*3/uL (0.00-0.03); Imm Gran Pct Auto 0.3 % (0.0-0.4); Lymphocytes Absolute Auto 2.1 X10*3/uL (1.2-4.9); Lymphocytes Percent Auto 29.5 % (20-40); Mean Corpuscular HGB Conc 34.3 g/dl (31.0-36.0); Mean Corpuscular Hemoglobin 32.1 pg (27.0-33.0); Mean Corpuscular Volume 93.5 fL (80.0-98.0); Mean Platelet Volume 10.6 fL (9.4-12.4); Monocytes Absolute Auto 0.7 X10*3/uL (0.1-1.2); Monocytes Percent Auto 9.6 % (2-11); Neutrophils Absolute Auto 4.1 x10*3/uL (2.0-8.3); Neutrophils Percent Auto 58.9 % (45-73); Platelet Count 176 X10*3/uL (160-400); Red Blood Count 4.33 X10*6/uL (4.60-5.80); Red Cell Distribution Width 12.6 % (11.0-16.0)
[2023-05-07 21:55] LABS: Alanine Aminotransferase 36 U/L (0-40); Albumin Level 4.3 g/dL (3.5-5.0); Alkaline Phosphatase 51 U/L (39-117); Anion Gap 13 (12-20); Aspartate Amino Transferase 32 U/L (5-37); Bilirubin Direct 0.2 mg/dL (0.0-0.5); Bilirubin Total 0.9 mg/dL (0.0-1.0); Blood Urea Nitrogen 25 mg/dL (9-16); Calcium 9.5 mg/dL (8.4-10.2); Carbon Dioxide 21 mmol/L (22-29); Chloride 108 mmol/L (96-108); Creatinine Clr Calc Pharmacy 104.1; Estimated Glomerular Filt Rate > 60; Glucose Random 107 mg/dL (60-115); Lipase 19 U/L (8-78); Potassium 3.9 mmol/L (3.3-5.1); Sodium 138 mmol/L (135-145)
[2023-05-08] VITALS (8 sets, daily range): BP systolic 106–142; BP diastolic 53–78; PULSE 57–77; RESP 16; TEMP 36.3–36.9; O2SAT 93–97
--- NOTE | 2023-05-08 01:25 | MHC.EDTECH ---
This pct just assumed care of Patient ,vitals taken ,pt urine sample collected and sent to lab .
[2023-05-08 01:35] LABS: Appearance Urine Clear; Color Urine Yellow; Glucose Urine UA Negative (Negative); Leukocyte Esterase Urine Negative (Negative); Nitrite Urine Negative (Negative); Specific Gravity - Urine 1.025 (1.005-1.025); Urine Blood Negative (Negative); Urine Ketones Negative (Negative); Urine Protein Trace mg/dL (Neg-Trace)
--- NOTE | 2023-05-08 02:17 | ED.ABDPAIN ---
HPI - Abdominal Pain General Chief Complaint: Abdominal Pain Stated Complaint: abd pain sent from u/c Time Seen by Provider: 05/08/23 02:17 Source: patient Mode of arrival: ambulatory Limitations: no limitations History of Present Illness HPI narrative: Patient alcoholic with depression was sober for 3 years started drinking again since last year feels stressed out requesting gets help to quit denies any suicidal ideation does have a family history of alcoholism no other substance abuse also complaining of diffuse abdominal discomfort and bloating Related Data Previous Rx's Medication Instructions Recorded acetaminophen 325 mg tablet 325 mg PO QID PRN pain #90 tabs 09/16/22 (Tylenol) doxycycline monohydrate 100 mg 100 mg PO BID #20 caps 09/16/22 capsule Allergies Allergy/AdvReac Type Severity Reaction Status Date / Time latex [LATEX] Allergy Mild RASH Verified 09/16/22 13:49 Review of Systems Review of Systems Yes all other systems are reviewed and are negative PMFSH Past Medical History Medical History No known health problems No known health problems Social History Social History Alcohol intake: current Alcohol intake frequency: 3 or more drinks per day Alcohol type: beer and hard liquor Patient Tobacco Use Status: Never used Tobacco Substance Use Frequency: Chronic Longstanding Advance Directives: No Advance Directives Information Provided: Yes Physical Exam ED Vital Signs: Vital Signs - 24 hr 05/07/23 21:09 05/08/23 01:15 05/08/23 03:30 Temperature 98.7 F 97.7 F 98.3 F Pulse Rate 87 70 66 Respiratory Rate 18 16 16 Blood Pressure 147/76 H 106/78 126/68 Pulse Oximetry 98 97 94 Oxygen Delivery Method Room Air Room Air Room Air 05/08/23 05:09 05/08/23 06:39 Temperature 97.5 F 97.4 F Pulse Rate 69 57 Respiratory Rate 16 16 Blood Pressure 121/53 L 142/78 H Pulse Oximetry 94 95 Oxygen Delivery Method Room Air Room Air BMI result Body Mass Index 29.0 Appearance: Alert. Oriented X3. No acute distress. Eyes: PERRLA, No Nystagmus no pallor or icterus ENT: Pharynx normal. Oral Mucosa moist Neck: Normal inspection. Neck supple. CVS: Normal heart rate and rhythm. Pulses normal. Respiratory: No respiratory distress. Equal air entry bilateral, no wheezing/rales/rhonchi Abdomen: Soft mild diffuse tenderness, no free fluid okay Bowel sounds are present, no mass palpable, no CVA tenderness Skin: Skin warm and dry. Normal skin color. Normal skin turgor. Extremities: No lower extremity edema. No calf tenderness Neuro: Oriented X 3. No motor deficit. No sensory deficit.No cerebellar signs , cranial nerves II-XII intact Medical Decision Making Medical Decision Making [facility] Narrative: Patient alcoholic with gastritis requesting help to go to detox will get care team involved for her getting to detox Differential Diagnosis Differential Diagnoses: The differential diagnosis associated with the presentation includes Gastritis/pancreatitis/alcohol abuse Admission/Observation Consideration of admission/observation: Escalation of care including admission/observation considered Lab Data [facility] Lab Attestation statement: I reviewed the patient's lab results. 05/07/23 21:33 05/07/23 21:33 Labs: Lab Results 05/07/23 05/08/23 Range/Units 21:33 01:25 WBC 7.0 (4.8-10.8) X10*3/uL RBC 4.33 L (4.60-5.80) X10*6/uL Hgb 13.9 L (14.0-18.0) g/dl Hct 40.5 L (42.0-52.0) % MCV 93.5 (80.0-98.0) fL MCH 32.1 (27.0-33.0) pg MCHC 34.3 (31.0-36.0) g/dl RDW 12.6 (11.0-16.0) % Plt Count 176 (160-400) X10*3/uL MPV 10.6 (9.4-12.4) fL Immature Gran % (Auto) 0.3 (0.0-0.4) % Neut % (Auto) 58.9 (45-73) % Lymph % (Auto) 29.5 (20-40) % Ballard % (Auto) 9.6 (2-11) % Eos % (Auto) 1.3 (0-4) % Baso % (Auto) 0.4 (0-2) % Lymph # (Auto) 2.1 (1.2-4.9) X10*3/uL Ball[place] # (Auto) 0.7 (0.1-1.2) X10*3/uL Eos # (Auto) 0.1 (0.0-0.4) X10*3/uL Baso # (Auto) 0.0 (0.0-0.2) X10*3/uL Abs Immat Gran (auto) 0.02 (0.00-0.03) X10*3/uL Absolute Neuts (auto) 4.1 (2.0-8.3) x10*3/uL Absolute Nucleated RBC 0.000 (0.0-0.012) X10*3/uL Nucleated RBC % (auto) 0.0 (0.0-0.2) /100WBC Sodium 138 (135-145) mmol/L Potassium 3.9 (3.3-5.1) mmol/L Chloride 108 (96-108) mmol/L Carbon Dioxide 21 L (22-29) mmol/L Anion Gap 13 (12-20) BUN 25 H (9-16) mg/dL Creatinine 1.05 (0.5-1.4) mg/dL Estim Creat Clear Calc 104.1 Estimated GFR > 60 Random Glucose 107 (60-115) mg/dL Calcium 9.5 (8.4-10.2) mg/dL Total Bilirubin 0.9 (0.0-1.0) mg/dL Direct Bilirubin 0.2 (0.0-0.5) mg/dL AST 32 (5-37) U/L ALT 36 (0-40) U/L Alkaline Phosphatase 51 (39-117) U/L Total Protein 7.0 (6.5-8.0) g/dL Albumin 4.3 (3.5-5.0) g/dL Lipase 19 (8-78) U/L Urine Color Yellow Urine Appearance Clear Urine pH 6.0 (5.0-9.0) Ur Specific [place] 1.025 (1.005-1.025) Urine Protein Trace (Neg-Trace) mg/dL Urine Glucose (UA) Negative (Negative) mg/dL Urine Ketones Negative (Negative) mg/dL Urine Blood Negative (Negative) Urine Nitrite Negative (Negative) Ur Leukocyte Esterase Negative (Negative) Urine Opiates Screen Not Detected (Not Detect) Urine Fentanyl Screen Not Detected (Not Detect) Ur Barbiturates Screen Not Detected (Not Detect) Ur Phencyclidine Scrn Not Detected (Not Detect) Ur Amphetamines Screen Not Detected (Not Detect) U Benzodiazepines Scrn Not Detected (Not Detect) Urine Cocaine Screen Not Detected (Not Detect) U Marijuana (THC) Screen Not Detected (Not Detect) Medications Administered Discontinued Medications Generic Name Dose Route Start Last Admin Trade Name Freq PRN Reason Stop Dose Admin Lorazepam 2 mg 05/08/23 02:52 05/08/23 03:15 Lorazepam 1 Mg Tablet PO 05/08/23 02:53 2 mg ONCE ONE Administration Omeprazole 40 mg 05/08/23 02:52 05/08/23 03:15 Omeprazole 40 Mg Capsule. PO 05/08/23 02:53 40 mg ONCE ONE Administration Discharge Plan Discharge Clinical Impression: Alcohol abuse, Alcoholic gastritis Patient Disposition: Still a Patient Prescriptions: No Action acetaminophen [Tylenol] 325 mg tablet 325 mg PO QID PRN (Reason: pain) Qty: 90 0RF doxycycline monohydrate 100 mg capsule 100 mg PO BID Qty: 20 0RF
[2023-05-08 03:09] LABS: Amphetamine Screen Urine Not Detected (Not Detect); Barbiturates, Urine Not Detected (Not Detect); Benzodiazepines Screen Urine Not Detected (Not Detect); Cannabinoid Screen Urine Not Detected (Not Detect); Cocaine Screen Urine Not Detected (Not Detect); Fentanyl, urine Not Detected (Not Detect); Opiate Screen Urine Not Detected (Not Detect); Phencyclidine Screen Urine Not Detected (Not Detect)
[2023-05-08] MEDS: LORazepam 1 MG TABLET 2 MG PO (03:15)
[2023-05-08] MEDS: Omeprazole 40 MG CAPSULE.DR PO (03:15)
--- NOTE | 2023-05-08 10:06 | PC.NURSE ---
patient a&ox3, oob independently in room, vss, pt currently has no c/o pain/discomfort, respirations equal and non labored, call [place] within reach, will continue to monitor
--- NOTE | 2023-05-08 10:49 | PC.NURSE ---
patient a&ox3, pt denies si/hi, pt has c/o abd pain which has been ongoing but states it is better than it was when he first arrived and is tolerable, pt states his last drink was thursday, pt looking to go into recovery, vss care team consult placed, call [place] within reach, will continue to monitor.
--- NOTE | 2023-05-08 12:18 | MHC.RECOVRN ---
Met with patient in ER Bed 20, he was alert and oriented x4, flat affect but cooperative with assessment, laying calmly in bed. Skin warm and dry, speaking in clear/full sentences, good color for ethnicity, denies nausea, no tremors noted with arms out straight. Patient states My mom wants me to go to Detox and I like to do what she says, I do want to stop . He states last drink was Thursday (3 days ago), states prior to drinking 4 beers and a shot everyday for the past year he was sober for 3 years. Very poor historian, states he wants to stop drinking, I asked what made him stop the last 3 days, and if he had any symptoms of withdrawal to which he responded Well I don't drink everyday . He also acknowledged that he works everyday at [employer] and does not want to lose his job, so we talked about outpatient treatment for AUD which he himself liked. I made an appt for Patient to see Saba Downing for an intake in our office ThursdayMay 11 at 2pm, he originally agreed to this and then said My mom called and said I need to go to Detox, and make sober friends there . Patient was given Detox information, we tried to call his mother at bedside together to answer her questions and clarify what she was looking for from us, and she did not answer. Patient acknowledges a safe home environment.
== END 2023-05-08 16:57 | disposition home or self-care (01) ==
PROVIDERS: Emergency Provider Internal Medicine
DX: K29.20 Alcoholic gastritis without bleeding (principal); F10.10 Alcohol abuse, uncomplicated; Y90.9 Presence of alcohol in blood, level not specified; Z79.899 Other long term (current) drug therapy
CPT/HCPCS: 36415; 80053; 80076; 80307; 81003; 82248; 83690; 85025; 99284

== ENCOUNTER 2023-05-11 14:33 | Outpatient (AMB) | payer MEDICARE, SELFPAY ==
[2023-05-11 14:49] VITALS: BP 118/74; PULSE 86; O2SAT 95
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
== END 2023-05-11 15:52 | disposition home or self-care (01) ==
PROVIDERS: Visit Provider Nurse Practitioner Family
DX: F10.90 Alcohol use, unspecified, uncomplicated (principal)
CPT/HCPCS: 99204

== ENCOUNTER → 2023-05-11 14:33 | Outpatient (BNVA) | payer MEDICARE, MEDICAID, SELFPAY | PROVIDERS: Visit Provider Nurse Practitioner Family | DX: F10.20 Alcohol dependence, uncomplicated (principal) | CPT/HCPCS: 80305; 99202 ==

== ENCOUNTER 2023-05-20 15:06 | Outpatient (AMB) | payer MEDICARE, SELFPAY ==
--- NOTE | 2023-05-20 15:07 | MHC.AM.SUB ---
Intake Vital Signs 05/20/23 15:10 BP 110/70 Blood Pressure Location Lt radial Position Sitting Pulse 83 Pulse Source Pulse Oximeter Pulse Oximetry (%) 95 Oxygen Delivery Method Room Air Intake Visit Reasons: mat visit Intake Note: the patient presents for a mat visit Rn Document Improvement Required: No Allergies latex [LATEX] Allergy (Mild, Verified 05/20/23 15:11) RASH HPI mat visit HPI Details Patient presents for MAT visit He has been alcohol free x 2 weeks He is interested in trialing naltrexone Has reported occasional cravings that he has powered through , he reports they pass after awhile [facility] Medical History No known health problems No known health problems Social History Alcohol intake: current Alcohol intake frequency: 3 or more drinks per day Alcohol type: beer and hard liquor Patient Tobacco Use Status: Never used Tobacco Review of Systems Const Reports as per HPI Physical Exam Vital Signs: Last Vital Signs Pulse 83 05/20/23 15:10 BP 110/70 05/20/23 15:10 Pulse Ox 95 05/20/23 15:10 Oxygen Delivery Method Room Air 05/20/23 15:10 Const General: cooperative, healthy appearing and no acute distress Resp Effort & Inspection: normal respiratory effort Psych Appearance: grossly normal Mental Status: mental status grossly normal Speech and movement: Normal speech and movement present Affect: normal affect Attitude: cooperative Assessment & Plan Assessment & Plan (1) Alcohol use disorder: Code(s): F10.90 - Alcohol use, unspecified, uncomplicated Plan -Naltrexone ordered, med education provided -Relapse prevention discussion -Discussed recovery supports -Follow up 1 week Medications: New naltrexone 1/2 tab x 3 days, then progress to full tab if well tolerated 50 mg PO DAILY 30 tabs 0RF Coding Level of Care Code Est Pt Level 3 (09096) Diagnoses Alcohol use disorder F10.90
[2023-05-20 15:10] VITALS: BP 110/70; PULSE 83; O2SAT 95
== END 2023-05-20 15:25 | disposition home or self-care (01) ==
PROVIDERS: Visit Provider Nurse Practitioner Family
DX: F10.90 Alcohol use, unspecified, uncomplicated (principal)
CPT/HCPCS: 99213

== ENCOUNTER → 2023-05-20 15:06 | Outpatient (BNVA) | payer MEDICARE, SELFPAY | PROVIDERS: Visit Provider Nurse Practitioner Family | DX: F11.20 Opioid dependence, uncomplicated (principal) | CPT/HCPCS: 99212 ==

== ENCOUNTER 2024-10-15 15:48 | Emergency (ER) | payer MEDICARE, SELFPAY ==
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
[2024-10-15 15:55] VITALS: BP 127/62; BP 146/98; PULSE 78; PULSE 83; RESP 16; TEMP 36.6; O2SAT 94; O2SAT 97; BMI 27.4
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
[2024-10-15 17:45] LABS: MANUAL DIFF FLAG NO
[2024-10-15 17:48] LABS: Hematocrit 36.8 % (42.0-52.0); Hemoglobin 13.2 g/dl (14.0-18.0); Imm Gran Abs Auto 0.07 X10*3/uL (0.00-0.03); Imm Gran Pct Auto 0.9 % (0.0-0.4); Lymphocytes Absolute Auto 1.3 X10*3/uL (1.2-4.9); Mean Corpuscular HGB Conc 35.9 g/dl (31.0-36.0); Mean Corpuscular Hemoglobin 32.8 pg (27.0-33.0); Mean Corpuscular Volume 91.3 fL (80.0-98.0); NRBC Abs Auto 0.000 X10*3/uL (0.0-0.012); NRBC Pct Auto 0.0 /100WBC (0.0-0.2); Platelet Count 154 X10*3/uL (160-400); Red Blood Count 4.03 X10*6/uL (4.60-5.80); White Blood Count 8.2 X10*3/uL (4.8-10.8)
[2024-10-15 18:01] LABS: Alanine Aminotransferase 24 U/L (0-40); Albumin Level 4.5 g/dL (3.5-5.0); Alkaline Phosphatase 53 U/L (39-117); Anion Gap 11 (12-20); Aspartate Amino Transferase 34 U/L (5-37); Blood Urea Nitrogen 24 mg/dL (9-16); Calcium 9.1 mg/dL (8.4-10.2); Carbon Dioxide 23 mmol/L (22-29); Chloride 109 mmol/L (96-108); Creatinine Clr Calc Pharmacy 130.3; Estimated Glomerular Filt Rate > 60; Potassium 3.8 mmol/L (3.3-5.1); Sodium 139 mmol/L (135-145); Total Protein 6.3 g/dL (6.5-8.0)
[2024-10-15 18:10] VITALS: BP 122/72; PULSE 87; RESP 20; O2SAT 94
[2024-10-15 18:23] LABS: Resp Syncy Virus RNA Qual PCR NEGATIVE (Negative); SARS COV2 PCR INHOUSE NEGATIVE (Negative)
[2024-10-15 18:52] LABS: Appearance Urine Clear; Glucose Urine UA Negative (Negative); PH 6.5 (5.0-9.0); Specific Gravity - Urine 1.015 (1.005-1.025)
[2024-10-15 19:17] LABS: Cannabinoid Screen Urine POSITIVE (Not Detect)
[2024-10-15] MEDS: Diphth,Pertus(ACell),Tet Adult 0.5 ML SYRINGE IM (20:09)
[2024-10-15 20:14] VITALS: BP 125/70; PULSE 61; RESP 16; TEMP 36.6; O2SAT 96
[2024-10-15 20:21] VITALS: BP 125/70; PULSE 61; RESP 16; TEMP 36.6; O2SAT 96
== END 2024-10-15 20:22 | disposition home or self-care (01) ==
PROVIDERS: Registered Nurse Emergency; Emergency Provider Internal Medicine
DX: R45.850 Homicidal ideations (principal); R04.0 Epistaxis; S80.212A Abrasion, left knee, initial encounter; S50.312A Abrasion of left elbow, initial encounter; Y04.2XXA Assault by strike against or bumped into by another person, initial encounter; Y93.9 Activity, unspecified; Y92.019 Unspecified place in single-family (private) house as the place of occurrence of the external cause; Y99.9 Unspecified external cause status; Z03.818 Encounter for observation for suspected exposure to other biological agents ruled out; Z23 Encounter for immunization; Z79.899 Other long term (current) drug therapy; F12.90 Cannabis use, unspecified, uncomplicated
CPT/HCPCS: 70450; 70486; 73562; 80053; 80307; 81003; 85025; 87637; 90471; 90715; 99284; S9485

== ENCOUNTER → 2024-10-15 16:37 | Outpatient (BNV) | payer MEDICARE, SELFPAY | PROVIDERS: Emergency Provider Internal Medicine; Visit Provider Radiology Diagnostic Radiology | DX: R68.84 Jaw pain (principal); R51.9 Headache, unspecified; S80.912A Unspecified superficial injury of left knee, initial encounter; M25.562 Pain in left knee; S80.911A Unspecified superficial injury of right knee, initial encounter; M25.561 Pain in right knee; Y09 Assault by unspecified means | CPT/HCPCS: 70450; 70486; 73562 ==